=== PATIENT | female | born 1980 | race African-American/Black ===

== ENCOUNTER 2020-08-02 05:10 | Inpatient (IN) | payer BC, OTHER ==
[~2020-08-02] VITALS: Ht 162.6 cm; Wt 84.4 kg
[2020-08-02] MEDS ORDERED: PNV1TABL50 PO (05:45)
[2020-08-02] MEDS ORDERED: LABE100T5 PO (05:48)
[2020-08-02] MEDS: LACTATED RINGERS 1,000 ML IV SCH ×2 (06:38→08:16)
[2020-08-02] MEDS: BUTORPHANOL TARTRATE 2 MG/ML VIAL IV PRN ×4 (06:40→19:22)
[2020-08-02 06:52] LABS: CLARITY URINE TURBID (CLEAR); COLOR URINE DARK YELLOW (YELLOW); KETONES URINE TRACE (NEGATIVE); LEUKOCYTE ESTERASE URINE 3+ (NEGATIVE); NITRITE URINE NEGATIVE (NEGATIVE); OCCULT BLOOD URINE NEGATIVE (NEGATIVE); PH URINE 5.5 (4.5-8.0); PROTEIN URINE 1+ (NEGATIVE); SPECIFIC GRAVITY URINE 1.029 (1.005-1.030); UROBILINOGEN URINE 0.2 E.U./dL (0.2-1.0)
[2020-08-02 06:54] LABS: BASOPHILS % 0.5 % (0.0-2.0); EOSINOPHILS % 1.3 % (0.0-5.0); HEMOGLOBIN. 12.5 g/dL (12.0-16.0); LYMPHOCYTES % 25.2 % (20.0-50.0); MEAN CORPUSCULAR HEMOGLOBIN 30.6 pg (28.0-32.0); MEAN CORPUSCULAR VOLUME 90.5 fL (81.0-99.0); MEAN PLATELET VOLUME 8.9 fl (7.4-10.4); PLATELET 203 x1000/uL (130-400); RED BLOOD CELL COUNT 4.08 mill/uL (4.2-5.4); RED CELL DISTRIBUTION WIDTH 13.3 % (11.6-14.6)
[2020-08-02 07:13] LABS: *AMPHETAMINES SCREEN URINE NEGATIVE (NEGATIVE)
[2020-08-02 07:14] LABS: *BARBITURATES SCREEN URINE NEGATIVE (NEGATIVE); *BENZODIAZEPINES SCREEN URINE NEGATIVE (NEGATIVE); *COCAINE SCREEN URINE NEGATIVE (NEGATIVE); METHADONE URINE SCREEN NEGATIVE (NEGATIVE); OPIATES URINE SCREEN NEGATIVE (NEGATIVE); PHENCYCLIDINE URINE SCREEN NEGATIVE (NEGATIVE)
[2020-08-02 07:15] LABS: CANNABINOID URINE SCREEN PRESUMTIVE POSITIVE (NEGATIVE)
[2020-08-02 07:26] LABS: INR 1.1; PARTIAL THROMBOPLASTIN TIME 26.9 sec (23.4-31.0); PROTHROMBIN TIME 11.3 sec (9.6-11.0)
[2020-08-02] MEDS ORDERED: MISOPROSTOL 200MCG TABLET PO SCH ×2 (13:00→17:00)
[2020-08-02 13:09] LABS: HEPATITIS B SURFACE ANTIGEN NEGATIVE
[2020-08-02] MEDS: DEXT 5%/LR + PITOCIN 20UNITS/L 1,000 ML IV SCH ×2 (17:47→19:52)
[2020-08-02 19:22] VITALS: BP 142/72
[2020-08-07 15:06] LABS: CANNABINOID CONFIRMATION URINE Positive (.)
== END 2020-08-02 22:10 | disposition home or self-care (01) | DRG 779 ==
LOC: OBSVTOIN 05:10 → 8 EST LDRP 05:10
PROVIDERS: ADMIT Obstetrics & Gynecology; ATTEND Obstetrics & Gynecology
DX: O03.4 Incomplete spontaneous abortion without complication (principal)
CPT/HCPCS: 36415; 80305; 80349; 80359; 81003; 85025; 86592; 86703; 86762; 86850; 86900; 87340; 88309; 99281; G0378; J0595; J2590; J7120